=== PATIENT | female | born 1960 | race Caucasian/White ===

== ENCOUNTER 2016-07-25 17:45 | Emergency (ER) | payer BC ==
--- NOTE | ~2016-07-25 | ER ---
PATIENT'S NAME: JOHNNA BARNES [facility] AGE: 55 Y [address] ROOM: [place] [address] LOCATION: [facility] ADMIT DATE: 07/25/2016 ER/Outpatient Report DISCHARGE DATE: 07/25/2016 FAMILY PHYSICIAN: Jovi Velez MD ATTENDING PHYSICIAN: Zeb Neri Time Of Arrival: 1745 hours. Time of Evaluation: 1755 hours. CHIEF COMPLAINT: Left arm numbness, tingling. HISTORY OF PRESENT ILLNESS: This is a 55-year-old female presents to the ER, she states that she has noticed some left arm numbness and tingling since yesterday. The patient states she has a history of a bulging disc in her neck that she was diagnosed with over a year ago and she states that she did do physical therapy on this and it did improve her symptoms. She states that she does not remember hurting her neck or doing anything to hurt her neck. She states that her usual neck symptoms or pain into her left arm but she has never had tingling into her hand before. She denies any chest pain. Denies any weakness. No shortness of breath. No cough. No recent illness. No fever or chills. No nausea, vomiting. No other problems at this time. The patient states that she has been taking aspirin daily, but she does not have a medical reason to be taking aspirin. She states that she has noticed some bruising to her left upper extremity, 1 to her forearm and one to her left finger. She states she has been seen by her primary care physician for that and they were going to do some blood tests on her as well. ALLERGIES: NO KNOWN ALLERGIES. MEDICATIONS: Please see medication list on nurse's notes. PAST MEDICAL HISTORY: Bulge disc in her neck. PAST SURGERIES: None. SOCIAL HISTORY: She does smoke a pack of cigarettes a day for last 35 years. She did quit in 2013. Drinks alcohol occasionally. PATIENT'S NAME: SHANNAN BARNESELA Alberto [facility] AGE: 55 Y [address] ROOM: [place] [address] LOCATION: ED ADMIT DATE: 07/25/2016 ER/Outpatient Report DISCHARGE DATE: 07/25/2016 FAMILY PHYSICIAN: Jovi Velez MD ATTENDING PHYSICIAN: Zeb Neri REVIEW OF SYSTEMS: All systems reviewed were negative with the exception of those discussed in the HPI. PHYSICAL EXAMINATION: VITAL SIGNS: Height 5 feet 4 inches stated, weight 52.4 kg taken, blood pressure is 160/77, pulse 61, respirations 16, temperature 98.1 degrees tympanically, saturation 100% on room air. [place] Coma Score is 15. GENERAL: Alert, calm, well-developed female, in no acute distress. HEENT. Head: Normocephalic. Eyes: Pupils are reactive to light. She does display moist mucous membranes. LUNGS: Clear to auscultation bilaterally. No wheezes or crackles. HEART: Regular rate and rhythm. EXTREMITIES: No clubbing or cyanosis. She does have full range of motion of her upper and her lower extremities. She has equal strength bilaterally upper and lower extremities. She does have the sensation of numbness in her left thenar eminence. Otherwise, she has equal sensation bilaterally in upper extremities. NEURO: Cranial nerves II through XII grossly intact. Gait is steady without assistance. MUSCULOSKELETAL: She has no tenderness over her cervical thoracic or lumbar spine with palpation. SKIN: She has an approximately a 6 cm bruise to her left forearm and she also has a bruise noted to her left ring finger. She has no significant tenderness with palpation over those areas. LABORATORY DATA: CBC: White count is 6.5, hemoglobin is 11.9. INR is 1.02, PTT 30. IMPRESSION: Left arm numbness and tingling with history of bulged disk in the neck. ASSESSMENT AND PLAN: We had monitored the patient here for quite some time. I did discuss the patient's care with Dr. Tucker. I will dismiss the patient to home with a prescription for prednisone and Flexeril to use as directed. She needs to continue to monitor symptoms continue to push fluids, and follow up with primary care physician if no better. The patient understands and agrees with care. RK LAGUNA PA-C FOR ZEB NERI DO PATIENT'S NAME: JOHNNA BARNES [facility] AGE: 55 Y [address] ROOM: [place], [place] [address] LOCATION: [facility] ADMIT DATE: 07/25/2016 ER/Outpatient Report DISCHARGE DATE: 07/25/2016 FAMILY PHYSICIAN: Jovi Velez MD ATTENDING PHYSICIAN: Zeb Neri/dorothy /[id number] d: 07/26/16 0123 t: 08/05/16 0651, OUTPATIENT REPORT
[2016-07-25 18:40] LABS: BASOPHIL % 0.6 %; EOSINOPHIL # 0.1 K/uL (0.0-0.5); EOSINOPHIL % 1.1 %; HEMOGLOBIN 11.9 g/dL (10.0-15.0); IMMATURE GRANULOCYTE % 0.2 %; LYMPHOCYTE # 2.4 K/uL (0.8-4.0); LYMPHOCYTE % 36.3 %; MCH 30.3 pg (27.0-34.0); MCV 86.5 fl (83.0-98.0); MONOCYTE # 0.4 K/uL (0.0-1.0); MONOCYTE % 6.5 %; MPV 9.4 fl (9.4-12.4); NEUTROPHIL # (ANC) 3.6 K/uL (1.8-7.8); NEUTROPHIL % 55.3 %; NRBC % 0 /100WBC (0-0.00); PLATELET COUNT 253 K/uL (150-450); RBC 3.93 M/uL (3.50-5.50); RDW-CV 13.1 % (11.9-14.6); WBC 6.5 K/uL (4.0-11.0)
[2016-07-25 18:50] LABS: INR - (THERAPEUTIC) 1.02 (0.92-1.07); PROTIME 10.7 SECONDS (9.8-11.4); PTT 30 SECONDS (25-32)
== END 2016-07-25 19:09 | disposition disaster alternative care site (69) ==
LOC: GMED 17:45
PROVIDERS: Physician Assistant Medical
DX: R20.0 Anesthesia of skin (principal); M79.81 Nontraumatic hematoma of soft tissue; Z87.39 Personal history of other diseases of the musculoskeletal system and connective tissue; Z79.82 Long term (current) use of aspirin; Z79.899 Other long term (current) drug therapy; Z87.891 Personal history of nicotine dependence